=== PATIENT | female | born 1965 | race African-American/Black ===

== ENCOUNTER → 2016-09-09 | Outpatient (REF) | payer OTHER ==
[2016-09-09 14:16] LABS: MEAN CORPUSCULAR HEMOGLOBIN 29.8 pg (27.0-33.0); MEAN CORPUSCULAR HGB CONC 33.3 g/dl (32.0-36.5); MEAN CORPUSCULAR VOLUME 89.6 fl (80.0-96.0); RED CELL DISTRIBUTION WIDTH 11.9 % (11.5-14.5); WHITE BLOOD COUNT 3.9 K/mm3 (4.0-10.0)
[2016-09-09 15:08] LABS: ALBUMIN 4.1 GM/DL (3.2-5.2); ALBUMIN/GLOBULIN RATIO 1.14 (1.00-1.93); ALKALINE PHOSPHATASE 72 U/L (45-117); ALT/SGPT 21 U/L (12-78); ANION GAP 7 MEQ/L (8-16); AST/SGOT 19 U/L (15-37); BILIRUBIN,TOTAL 0.4 MG/DL (0.2-1.0); BLOOD UREA NITROGEN 15 MG/DL (7-18); CARBON DIOXIDE LEVEL 32 MEQ/L (21-32); CHLORIDE LEVEL 103 MEQ/L (98-107); CHOLESTEROL LEVEL 252 MG/DL (<200); CREATININE FOR GFR 0.94 MG/DL (0.55-1.02); GLOMERULAR FILTRATION RATE > 60.0 (>51); GLUCOSE, FASTING 77 MG/DL (70-105); POTASSIUM SERUM 4.5 MEQ/L (3.5-5.1); SODIUM LEVEL 142 MEQ/L (136-145); TOTAL PROTEIN 7.7 GM/DL (6.4-8.2); TRIGLYCERIDES LEVEL 53 MG/DL (<150)
== END ==
LOC: M SFHCPLAZ 10:04
PROVIDERS: ATTEND Family Medicine
DX: Z13.21 Encounter for screening for nutritional disorder (principal); Z13.1 Encounter for screening for diabetes mellitus; Z13.220 Encounter for screening for lipoid disorders; Z68.39 Body mass index [BMI] 39.0-39.9, adult

== ENCOUNTER → 2016-11-30 | Outpatient (CLI) | payer OTHER ==
--- NOTE | 2016-11-30 14:46 | REPMRS ---
Patient History The patient states she has not had a clinical breast exam in over a year. Family history of breast cancer in maternal cousin under age 50. Digital Woman Screen Mammo: November 30, 2016 - Exam #: [id number] Bilateral CC and MLO view(s) were taken. Technologist: Michelle Chavira, Technologist Prior study comparison: November 14, 2013, digital woman screen mammo performed at [facility]. November 06, 2012, digital woman screen mammo performed at [facility] to [facility]. FINDINGS: The breast tissue is heterogeneously dense. This may lower the sensitivity of mammography. There has been no change in the appearance of the mammogram from the prior studies. There is a moderate amount of residual fibroglandular tissue which is fairly symmetric. There is no interval development of dominant mass, areas of architectural distortion, or clustered microcalcification typical of malignancy. ASSESSMENT: BI-RADS/ACR category 1 mammogram. Negative. Recommendation Routine screening mammogram in 1 year (for women over age 40). This mammogram was interpreted with the aid of an FDA-approved computer-aided dectection system. Electronically Signed By: Prabhu Lange MD 11/30/16 1054
== END ==
LOC: M WHC 12:48
PROVIDERS: ATTEND Family Medicine
DX: Z12.31 Encounter for screening mammogram for malignant neoplasm of breast (principal)

== ENCOUNTER → 2016-12-29 | Outpatient (CLI) | payer MEDICAID, OTHER ==
[~2016-12-29] VITALS: Ht 167.6 cm; Wt 115.2 kg
[~2016-12-29] MED LIST: LIDOCAINE 2% INJ 100 MG/5 ML SDV (FOR ANES.) As Ordered ONE; NS 1,000 ML IV ONE; PHEN15CA PO; PROPOFOL 200 MG/20 ML VIAL As Ordered ONE; TOPI50TA9 PO
--- NOTE | 2016-12-29 10:26 | ROOR ---
Patient Name: Kerri Peoples Procedure Date: 12/29/2016 9:57 AM Date of : 1965 Age: 51 Room: [facility] Gender: Female Note Status: Finalized Procedure: Colonoscopy Indications: Screening for colorectal malignant neoplasm Providers: Merrick Patel Jr, MD Referring MD: Estefania Dotson DO Requesting Provider: Medicines: Propofol per Anesthesia Complications: No immediate complications. Procedure: Pre-Anesthesia Assessment: - Prior to the procedure, a History and Physical was performed, and patient medications and allergies were reviewed. The patient is competent. The risks and benefits of the procedure and the sedation options and risks were discussed with the patient. All questions were answered and informed consent was obtained. Patient identification and proposed procedure were verified by the physician and the nurse in the pre-procedure area and in the procedure room. Mental Status Examination: alert and oriented. Airway Examination: normal oropharyngeal airway and neck mobility. Respiratory Examination: clear to auscultation. CV Examination: normal. ASA Grade Assessment: II - A patient with mild systemic disease. After reviewing the risks and benefits, the patient was deemed in satisfactory condition to undergo the procedure. The anesthesia plan was to use moderate sedation / analgesia (conscious sedation). Immediately prior to administration of medications, the patient was re-assessed for adequacy to receive sedatives. The heart rate, respiratory rate, oxygen saturations, blood pressure, adequacy of pulmonary ventilation, and response to care were monitored throughout the procedure. The physical status of the patient was re-assessed after the procedure. The Colonoscope was introduced through the anus and advanced to the cecum, identified by appendiceal orifice and ileocecal valve. The colonoscopy was performed without difficulty. The patient tolerated the procedure well. The quality of the bowel preparation was adequate and excellent. Findings: The perianal and digital rectal examinations were normal. Pertinent negatives include normal sphincter tone, no palpable rectal lesions and no anal lesion or abnormality was detected. The rectum, recto-sigmoid colon, sigmoid colon, descending colon, transverse colon, ascending colon, cecum, appendiceal orifice and ileocecal valve appeared normal. Impression: - The rectum, recto-sigmoid colon, sigmoid colon, descending colon, transverse colon, ascending colon, cecum, appendiceal orifice and ileocecal valve are normal. - No specimens collected. Recommendation: - Discharge patient to home (ambulatory). - Repeat colonoscopy in 10 years for screening purposes. Merrick Patel MD Merrick Patel Jr, MD 12/29/2016 10:25:50 AM This report has been signed electronically. Number of Addenda: 0 Note Initiated On: 12/29/2016 9:57 AM Estimated Blood Loss: Estimated blood loss: none.
[2016-12-29 10:45] VITALS: BP 110/75
== END ==
LOC: M OPP 08:54
PROVIDERS: ATTEND Surgery
DX: Z12.11 Encounter for screening for malignant neoplasm of colon (principal); E66.9 Obesity, unspecified; Z79.899 Other long term (current) drug therapy; Z88.5 Allergy status to narcotic agent

== ENCOUNTER → 2017-04-08 | Outpatient (REF) | payer OTHER ==
[~2017-04-08] MED LIST changes: -LIDOCAINE 2% INJ 100 MG/5 ML SDV (FOR ANES.) As Ordered ONE; -NS 1,000 ML IV ONE; -PROPOFOL 200 MG/20 ML VIAL As Ordered ONE
== END ==
LOC: M LAB REF 15:30
PROVIDERS: ATTEND Physician Assistant Surgical
DX: N39.0 Urinary tract infection, site not specified (principal)

== ENCOUNTER → 2017-05-31 | Outpatient (REF) | payer OTHER | LOC: M SFHCWAGY 17:09 | PROVIDERS: ATTEND Nurse Practitioner Women's Health | DX: Z11.3 Encounter for screening for infections with a predominantly sexual mode of transmission (principal) ==

== ENCOUNTER → 2017-08-09 | Outpatient (REF) | payer OTHER ==
[2017-08-09 15:46] LABS: TOTAL 25(OH) VITAMIN D 21.7 NG/ML (30.0-100.0)
== END ==
LOC: M SFHCWAGY 11:56
DX: R53.83 Other fatigue (principal); E55.9 Vitamin D deficiency, unspecified
CPT/HCPCS: 82306

== ENCOUNTER → 2018-04-05 | Outpatient (REF) | payer OTHER ==
[2018-04-05 19:25] LABS: CHLAMYDIA DNA AMPLIFICATION NEGATIVE (NEGATIVE); GC DNA AMPLIFICATION NEGATIVE (NEGATIVE)
== END ==
LOC: M SFHCWAGY 16:25
DX: Z11.3 Encounter for screening for infections with a predominantly sexual mode of transmission (principal)

== ENCOUNTER → 2018-04-09 | Outpatient (CLI) | payer OTHER | LOC: M WHC 13:21 | DX: Z12.31 Encounter for screening mammogram for malignant neoplasm of breast (principal); N60.31 Fibrosclerosis of right breast; N60.32 Fibrosclerosis of left breast | CPT/HCPCS: 77067 ==

== ENCOUNTER → 2018-04-30 | Outpatient (CLI) | payer OTHER | LOC: M WUC 15:23 | DX: S39.012A Strain of muscle, fascia and tendon of lower back, initial encounter (principal); W18.30XA Fall on same level, unspecified, initial encounter; Y92.009 Unspecified place in unspecified non-institutional (private) residence as the place of occurrence of the external cause | CPT/HCPCS: 72110 ==

== ENCOUNTER → 2019-01-25 | Outpatient (REF) | payer OTHER ==
[2019-01-25 18:11] LABS: CHLAMYDIA DNA AMPLIFICATION NEGATIVE (NEGATIVE); GC DNA AMPLIFICATION NEGATIVE (NEGATIVE)
== END ==
LOC: M SFHCPLAZ 11:38
PROVIDERS: ATTEND Obstetrics & Gynecology
DX: N89.8 Other specified noninflammatory disorders of vagina (principal)

== ENCOUNTER → 2019-01-25 | Outpatient (REF) | payer OTHER ==
[2019-01-25 14:00] LABS: BASO % 0.6 % (0.0-1.0); HEMATOCRIT 39.7 % (36.0-47.0); HEMOGLOBIN 12.8 g/dl (12.0-15.5); LYMPH # 1.5 10^3/uL (1.5-4.5); LYMPH % 48.6 % (24.0-44.0); MEAN CORPUSCULAR HEMOGLOBIN 29.6 pg (27.0-33.0); MEAN CORPUSCULAR HGB CONC 32.2 g/dl (32.0-36.5); MEAN CORPUSCULAR VOLUME 91.9 fl (80.0-96.0); MONO # 0.3 10^3/uL (0.0-0.8); MONO % 8.9 % (0.0-5.0); NEUTROPHILS # 1.3 10^3/uL (1.8-7.7); NEUTROPHILS % 40.9 % (36.0-66.0); PLATELET COUNT, AUTOMATED 200 10^3/uL (150-450); RED BLOOD COUNT 4.32 10^6/uL (4.00-5.40); WHITE BLOOD COUNT 3.2 10^3/uL (4.0-10.0)
[2019-01-25 14:07] LABS: C REACTIVE PROTEIN QUANTITATIV < 0.30 MG/DL (0.00-0.30); GLOMERULAR FILTRATION RATE > 60.0 (>51); RHEUMATOID FACTOR QUANT < 10.0 IU/ML (<15.0)
[2019-01-25 14:22] LABS: ERYTHROCYTE SEDIMENTATION RATE 8 mm/hr (0-30)
[2019-01-31 00:06] LABS: ANTINUCLEAR ANTIBODIES DIRECT Negative (Negative); HLA-B27 Negative (.); Lyme Disease IgG/IgM Antibodie <0.91 ISR (0.00-0.90); Lyme Disease IgM Ab Quantitati <0.80 index (0.00-0.79)
== END ==
LOC: M LABDRAW1 10:23
PROVIDERS: ATTEND Physician Assistant
DX: M17.11 Unilateral primary osteoarthritis, right knee (principal)

== ENCOUNTER → 2019-01-25 | Outpatient (REF) | payer OTHER ==
[2019-01-25 14:08] LABS: BLOOD UREA NITROGEN 15 MG/DL (7-18); CALCIUM LEVEL 9.1 MG/DL (8.5-10.1); CARBON DIOXIDE LEVEL 31 MEQ/L (21-32); CHLORIDE LEVEL 106 MEQ/L (98-107); CHOLESTEROL LEVEL 223 MG/DL (<200); CHOLESTEROL RISK RATIO 2.207 (<5); CREATININE FOR GFR 0.82 MG/DL (0.55-1.30); GLOMERULAR FILTRATION RATE > 60.0 (>51); GLUCOSE, FASTING 80 MG/DL (70-100); HDL CHOLESTEROL 101 MG/DL (>40); LDL CHOLESTEROL 113 MG/DL (<100); NON-HDL-C 122 MG/DL; SODIUM LEVEL 141 MEQ/L (136-145); TRIGLYCERIDES LEVEL 47 MG/DL (<150)
[2019-01-25 14:25] LABS: HEMOGLOBIN A1c 5.9 %
== END ==
LOC: M LABDRAW1 10:20
PROVIDERS: ATTEND Obstetrics & Gynecology
DX: Z13.1 Encounter for screening for diabetes mellitus (principal); E78.5 Hyperlipidemia, unspecified

== ENCOUNTER → 2019-08-07 | Outpatient (CLI) | payer MEDICAID, OTHER, SELFPAY ==
--- NOTE | 2019-08-07 15:29 | REPMRS ---
Patient History The patient states she had a clinical breast exam in 2019. Family history of breast cancer under age 50 in maternal cousin. Digital Woman Screen Mammo: August 07, 2019 - Exam #: [id number] Bilateral CC and MLO view(s) were taken. Technologist: Pam Valera, Technologist Prior study comparison: April 09, 2018, bilateral digital woman screen mammo performed at [facility]. November 30, 2016, digital woman screen mammo performed at [facility]. November 14, 2013, digital woman screen mammo performed at [facility]. FINDINGS: The breast tissue is heterogeneously dense. This may lower the sensitivity of mammography. There has been some involutional change in the interval since the prior study. There is a somewhat asymmetric density in the medial aspect of the right breast on the craniocaudad view. This is not seen on the MLO view. This is felt to merit further evaluation . There is a moderate amount of heterogeneously dense fibroglandular tissue which is fairly symmetric. There is no other interval development of dominant mass, architectural distortion, or grouped microcalcification typical of malignancy. There has been no other change in the appearance of the mammogram from the prior studies. 3-D tomosynthesis shows no additional findings. Assessment: BI-RADS/ACR category 0 mammogram, Incomplete: Need additional imaging evaluation and/or prior mammograms for comparison. Recommendation Ultrasound and special view mammogram of the right breast. This patient's Lifetime Breast Cancer RIsk is estimated at 7.1 %. This mammogram was interpreted with the aid of an FDA-approved computer-aided dectection system. Electronically Signed By: Colin Chopra MD 08/07/19 0223
== END ==
LOC: M WHC 13:58
PROVIDERS: ATTEND Nurse Practitioner Women's Health
DX: Z12.31 Encounter for screening mammogram for malignant neoplasm of breast (principal)

== ENCOUNTER → 2019-08-16 | Outpatient (CLI) | payer MEDICAID, SELFPAY ==
--- NOTE | 2019-08-19 08:14 | REP ---
Digital diagnostic unilateral right breast mammography with CAD and focused right breast sonography: History: Screening mammography August 07, 2019 was BIRADS category 0 because of a possible asymmetric density medially in the right breast seen only on the craniocaudal view. Comparison mammography from April 09, 2018 and November 30, 2016 is also reviewed. Mammographic findings: Magnified focal spot compression CC, true mediolateral and MLO views are obtained. The area in question compresses away to stromal elements which are felt to be unchanged radiographically from comparison mammography 2017 and 2016. No suspicious mammogram finding. Sonographic findings: Focused right breast sonography is performed in the right breast medially. 2 o'clock to 4 o'clock and retroareolar region. Normal stromal elements are seen. Mildly heterogeneous fibroglandular background echotexture is seen. No cyst, mass, or acoustic shadowing is appreciated. Impression: BIRADS category 1 negative findings. Repeat screening mammography recommended in 1 year. This mammogram was interpreted with the aid of an FDA-approved computer-aided detection system. The patient letter being requested is M1 dense.
== END ==
LOC: M WHC 13:47
PROVIDERS: ATTEND Nurse Practitioner Women's Health
DX: R92.2 Inconclusive mammogram (principal)

== ENCOUNTER → 2019-09-05 | Outpatient (REF) | payer MEDICAID ==
[2019-09-05 17:38] LABS: BASO % 0.4 % (0.0-1.0); EOS # 0.1 10^3/uL (0.0-0.5); EOS % 1.5 % (0.0-3.0); HEMATOCRIT 40.6 % (36.0-47.0); LYMPH # 2.1 10^3/uL (1.5-5.0); LYMPH % 44.3 % (24.0-44.0); MEAN CORPUSCULAR HEMOGLOBIN 29.1 pg (27.0-33.0); MONO # 0.3 10^3/uL (0.0-0.8); MONO % 6.6 % (0.0-5.0); NEUTROPHILS # 2.2 10^3/uL (1.5-8.5); NEUTROPHILS % 46.8 % (36.0-66.0); PLATELET COUNT, AUTOMATED 219 10^3/uL (150-450); RED BLOOD COUNT 4.46 10^6/uL (4.00-5.40); WHITE BLOOD COUNT 4.7 10^3/uL (4.0-10.0)
[2019-09-05 17:51] LABS: C REACTIVE PROTEIN QUANTITATIV < 0.30 MG/DL (0.00-0.30); RHEUMATOID FACTOR QUANT < 10.0 IU/ML (<15.0); URIC ACID 3.4 MG/DL (2.6-6.0)
[2019-09-05 18:09] LABS: ERYTHROCYTE SEDIMENTATION RATE 14 mm/hr (0-30)
== END ==
LOC: M LABDRAWP 17:03
PROVIDERS: ATTEND Physician Assistant
DX: M17.0 Bilateral primary osteoarthritis of knee (principal)

== ENCOUNTER 2019-09-13 17:01 | Emergency (ER) | payer MEDICAID, OTHER ==
[~2019-09-13] VITALS: Ht 167.6 cm; Wt 117.9 kg
[2019-09-13 19:05] VITALS: BP 164/84
--- NOTE | 2019-09-13 19:15 | REP ---
HISTORY: Pain and swelling. COMPARISON: None. Preliminary report was given by [employer] at the time the examination was performed. TECHNIQUE: Multiple ultrasonographic images of the deep venous structures of the right thigh were obtained from the common femoral vein to the popliteal vein along with Doppler interrogation and color flow Doppler images. FINDINGS: There is no abnormal echogenic material seen within any of the visualized deep venous structures that would suggest acute thrombosis. Coaptation is unremarkable throughout. Doppler interrogation shows an expected response to respiratory variability and augmentation. The color flow images show what appears to be a normal vascular pattern throughout. IMPRESSION: There is no ultrasonographic evidence of deep venous thrombosis involving any of the visualized deep venous structures of the right thigh, as described above. Electronically Signed by Jevon Recio DO 09/13/2019 07:32 P
== END 2019-09-13 20:11 | disposition home or self-care (01) ==
LOC: M ED 17:01
DX: R22.41 Localized swelling, mass and lump, right lower limb (principal); Z88.5 Allergy status to narcotic agent; Z88.8 Allergy status to other drugs, medicaments and biological substances

== ENCOUNTER → 2019-09-16 | Outpatient (REF) | payer OTHER ==
[2019-09-16 18:14] LABS: APPEARANCE, URINE TURBID (CLEAR); BACTERIA, URINE AUTO 2+ (NEGATIVE); BILIRUBIN, URINE AUTO NEGATIVE (NEGATIVE); BLOOD, URINE BLOOD 1+ (NEGATIVE); COLOR, URINE YELLOW (YELLOW); GLUCOSE, URINE (UA) AUTO NEGATIVE (NEGATIVE); KETONE, URINE AUTO TRACE mg/dL (NEGATIVE); LEUKOCYTE ESTERASE, URINE AUTO 2+ (NEGATIVE); NITRITE, URINE AUTO NEGATIVE (NEGATIVE); PROTEIN, URINE AUTO NEGATIVE (NEGATIVE); RBC, URINE AUTO 2 /HPF (0-3); SPECIFIC GRAVITY URINE AUTO 1.032 (1.002-1.035); SQUAMOUS EPITHELIAL CELL UR AU 0 /HPF (0-6); UROBILINOGEN, URINE AUTO 0.2 mg/dL (0.0-2.0); WBC, URINE AUTO 4 /HPF (0-3)
== END ==
LOC: M SFHCPLAZ 17:09
PROVIDERS: ATTEND Obstetrics & Gynecology
DX: R30.0 Dysuria (principal)

== ENCOUNTER → 2019-09-21 | Outpatient (CLI) | payer OTHER ==
[2019-09-21 17:43] LABS: BLOOD UREA NITROGEN 16 MG/DL (7-18); CALCIUM LEVEL 8.8 MG/DL (8.5-10.1); CARBON DIOXIDE LEVEL 30 MEQ/L (21-32); CHLORIDE LEVEL 104 MEQ/L (98-107); CHOLESTEROL LEVEL 217 MG/DL (<200); CHOLESTEROL RISK RATIO 2.358 (<5); CREATININE FOR GFR 0.84 MG/DL (0.55-1.30); GLOMERULAR FILTRATION RATE > 60.0 (>51); GLUCOSE, FASTING 79 MG/DL (70-100); HDL CHOLESTEROL 92 MG/DL (>40); LDL CHOLESTEROL 114 MG/DL (<100); NON-HDL-C 125 MG/DL; POTASSIUM SERUM 4.2 MEQ/L (3.5-5.1); SODIUM LEVEL 140 MEQ/L (136-145); TRIGLYCERIDES LEVEL 53 MG/DL (<150)
== END ==
LOC: M WUC 13:40
PROVIDERS: ATTEND Obstetrics & Gynecology
DX: Z13.220 Encounter for screening for lipoid disorders (principal); Z13.1 Encounter for screening for diabetes mellitus

== ENCOUNTER → 2019-10-20 | Outpatient (REF) | payer OTHER | LOC: M LAB REF 18:15 | PROVIDERS: ATTEND Physician Assistant | DX: R30.0 Dysuria (principal) ==

== ENCOUNTER → 2019-12-09 | Outpatient (REF) | payer OTHER | LOC: M LAB REF 15:56 | PROVIDERS: ATTEND Physician Assistant | DX: N39.0 Urinary tract infection, site not specified (principal) ==

== ENCOUNTER → 2020-07-24 | Outpatient (REF) | payer OTHER ==
[2020-07-24 14:03] LABS: APPEARANCE, URINE CLEAR (CLEAR); BACTERIA, URINE AUTO NEGATIVE (NEGATIVE); BILIRUBIN, URINE AUTO NEGATIVE (NEGATIVE); BLOOD, URINE BLOOD 1+ (NEGATIVE); COLOR, URINE YELLOW (YELLOW); GLUCOSE, URINE (UA) AUTO NEGATIVE (NEGATIVE); KETONE, URINE AUTO NEGATIVE (NEGATIVE); LEUKOCYTE ESTERASE, URINE AUTO NEGATIVE (NEGATIVE); MUCUS, URINE SMALL (NEGATIVE); NITRITE, URINE AUTO NEGATIVE (NEGATIVE); PROTEIN, URINE AUTO NEGATIVE (NEGATIVE); RBC, URINE AUTO 2 /HPF (0-3); SPECIFIC GRAVITY URINE AUTO 1.021 (1.002-1.035); SQUAMOUS EPITHELIAL CELL UR AU 2 /HPF (0-6); UROBILINOGEN, URINE AUTO 0.2 mg/dL (0.0-2.0); WBC, URINE AUTO 1 /HPF (0-3)
== END ==
LOC: M SFHCPLAZ 12:49
PROVIDERS: ATTEND Student in an Organized Health Care Education/Training Program
DX: I10 Essential (primary) hypertension (principal)

== ENCOUNTER → 2020-08-13 | Outpatient (CLI) | payer OTHER ==
--- NOTE | 2020-08-13 14:34 | REPMRS ---
Patient History The patient states she has not had a clinical breast exam in over a year. Family history of breast cancer under age 50 in maternal cousin. No Hormone Replacement Therapy Digital Woman Screen Mammo: August 13, 2020 - Exam #: [id number] Bilateral CC and MLO view(s) were taken. Technologist: Michelle Chavira, Technologist Prior study comparison: August 07, 2019, bilateral digital woman screen mammo performed at [facility]. April 09, 2018, bilateral digital woman screen mammo performed at [facility]. November 30, 2016, digital woman screen mammo performed at [facility]. FINDINGS: There are scattered fibroglandular densities. The Volpara volumetric breast density category is: B. There is a moderate amount of residual fibroglandular tissue which is fairly symmetric. There is no interval development of dominant mass, architectural distortion, or grouped microcalcification typical of malignancy. There has been no change in the appearance of the mammogram from the prior studies. 3-D tomosynthesis shows no additional findings. Assessment: BI-RADS/ACR category 1 mammogram. Negative Mammogram. Recommendation Routine screening mammogram of both breasts in 1 year (for women over age 40). This patient's [facility] Lifetime Breast Cancer RIsk is estimated at 7.0 %. This mammogram was interpreted with the aid of an FDA-approved computer-aided dectection system. Electronically Signed By: Colin Chopra MD 08/13/20 3583
== END ==
LOC: M WHC 12:54
PROVIDERS: ATTEND Nurse Practitioner Women's Health
DX: Z12.31 Encounter for screening mammogram for malignant neoplasm of breast (principal)

== ENCOUNTER → 2020-09-24 | Outpatient (CLI) | payer OTHER ==
[2020-09-24 16:36] LABS: THYROID STIMULATING HORMONE 0.86 uIU/ML (0.358-3.740)
[2020-09-24 16:45] LABS: PROLACTIN 8.2 NG/ML
== END ==
LOC: M WUC 13:29
PROVIDERS: ATTEND Student in an Organized Health Care Education/Training Program
DX: L68.0 Hirsutism (principal)

== ENCOUNTER → 2020-10-05 | Outpatient (CLI) | payer OTHER | LOC: M WUC 13:22 | PROVIDERS: ATTEND Student in an Organized Health Care Education/Training Program | DX: L68.0 Hirsutism (principal) ==

== ENCOUNTER → 2020-11-04 | Outpatient (REF) | payer OTHER | LOC: M LAB REF 15:58 | PROVIDERS: ATTEND Physician Assistant | DX: R30.0 Dysuria (principal) ==

== ENCOUNTER → 2020-12-08 | Outpatient (CLI) | payer OTHER ==
[2020-12-08 20:58] LABS: BLOOD UREA NITROGEN 14 MG/DL (7-18); CARBON DIOXIDE LEVEL 28 MEQ/L (21-32); CHLORIDE LEVEL 109 MEQ/L (98-107); CREATININE FOR GFR 0.88 MG/DL (0.55-1.30); GLOMERULAR FILTRATION RATE > 60.0 (>51); GLUCOSE, FASTING 88 MG/DL (70-100); POTASSIUM SERUM 3.8 MEQ/L (3.5-5.1); SODIUM LEVEL 142 MEQ/L (136-145)
== END ==
LOC: M WUC 14:02
PROVIDERS: ATTEND Student in an Organized Health Care Education/Training Program
DX: Z68.41 Body mass index [BMI] 40.0-44.9, adult (principal)

== ENCOUNTER → 2021-06-02 | Outpatient (CLI) | payer OTHER ==
[~2021-06-02] MED LIST changes: -PHEN15CA PO; +PHEN15CA6 PO
[2021-06-02 16:12] LABS: BASO % 0.7 % (0.0-1.0); EOS # 0.1 10^3/uL (0.0-0.5); EOS % 1.2 % (0.0-3.0); HEMATOCRIT 42.8 % (36.0-47.0); HEMOGLOBIN 13.3 g/dl (12.0-15.5); LYMPH # 1.7 10^3/uL (1.5-5.0); LYMPH % 40.3 % (24.0-44.0); MEAN CORPUSCULAR HEMOGLOBIN 28.5 pg (27.0-33.0); MEAN CORPUSCULAR HGB CONC 31.1 g/dl (32.0-36.5); MEAN CORPUSCULAR VOLUME 91.8 fl (80.0-96.0); MONO # 0.3 10^3/uL (0.0-0.8); NEUTROPHILS # 2.1 10^3/uL (1.5-8.5); NEUTROPHILS % 49.8 % (36.0-66.0); PLATELET COUNT, AUTOMATED 222 10^3/uL (150-450); RED BLOOD COUNT 4.66 10^6/uL (4.00-5.40); WHITE BLOOD COUNT 4.1 10^3/uL (4.0-10.0)
[2021-06-02 16:41] LABS: BLOOD UREA NITROGEN 14 MG/DL (7-18); CALCIUM LEVEL 9.2 MG/DL (8.5-10.1); CARBON DIOXIDE LEVEL 32 MEQ/L (21-32); CHLORIDE LEVEL 106 MEQ/L (98-107); CHOLESTEROL LEVEL 274 MG/DL (<200); CHOLESTEROL RISK RATIO 2.824 (<5); CREATININE FOR GFR 0.87 MG/DL (0.55-1.30); GLOMERULAR FILTRATION RATE > 60.0 (>51); GLUCOSE, FASTING 89 MG/DL (70-100); HDL CHOLESTEROL 97 MG/DL (>40); LDL CHOLESTEROL 166 MG/DL (<100); NON-HDL-C 177 MG/DL; POTASSIUM SERUM 4.1 MEQ/L (3.5-5.1); SODIUM LEVEL 144 MEQ/L (136-145); TRIGLYCERIDES LEVEL 57 MG/DL (<150)
[2021-06-02 16:43] LABS: HEMOGLOBIN A1c 5.7 %
== END ==
LOC: M WUC 11:20
PROVIDERS: ATTEND Student in an Organized Health Care Education/Training Program
DX: R73.03 Prediabetes (principal)

== ENCOUNTER → 2021-06-02 | Outpatient (REF) | payer OTHER ==
[~2021-06-02] MED LIST changes: +PHEN15CA PO; -PHEN15CA6 PO
== END ==
LOC: M SFHCPLAZ 10:16
PROVIDERS: ATTEND Family Medicine
DX: R73.03 Prediabetes (principal); Z53.9 Procedure and treatment not carried out, unspecified reason

== ENCOUNTER → 2021-08-24 | Outpatient (CLI) | payer OTHER ==
[~2021-08-24] MED LIST changes: -PHEN15CA PO; +PHEN15CA6 PO
[2021-08-24 19:06] LABS: HEPATITIS B SURFACE ANTIBODY POSITIVE (POSITIVE)
[2021-08-26 04:07] LABS: RUBEOLA IgG ANTIBODY 83.2 AU/mL (Immune >16.4)
== END ==
LOC: M PLALAB 15:34
PROVIDERS: ATTEND Student in an Organized Health Care Education/Training Program
DX: Z02.79 Encounter for issue of other medical certificate (principal)

== ENCOUNTER → 2021-09-27 | Outpatient (REF) | payer OTHER | LOC: M SFHCPLAZ 15:53 | PROVIDERS: ATTEND Family Medicine | DX: I10 Essential (primary) hypertension (principal); R53.82 Chronic fatigue, unspecified; R73.03 Prediabetes; Z53.9 Procedure and treatment not carried out, unspecified reason ==

== ENCOUNTER → 2021-10-14 | Outpatient (CLI) | payer OTHER ==
[2021-10-14 17:19] LABS: ALBUMIN 3.9 GM/DL (3.2-5.2); ALT/SGPT 23 U/L (12-78); BILIRUBIN,TOTAL 0.3 MG/DL (0.2-1.0); BLOOD UREA NITROGEN 19 MG/DL (7-18); CALCIUM LEVEL 9.2 MG/DL (8.5-10.1); CARBON DIOXIDE LEVEL 34 MEQ/L (21-32); CHLORIDE LEVEL 101 MEQ/L (98-107); CHOLESTEROL LEVEL 206 MG/DL (<200); CHOLESTEROL RISK RATIO 2.607 (<5); CREATININE FOR GFR 1.01 MG/DL (0.55-1.30); GLOMERULAR FILTRATION RATE > 60.0 (>51); GLUCOSE, FASTING 68 MG/DL (70-100); HDL CHOLESTEROL 79 MG/DL (>40); LDL CHOLESTEROL 112 MG/DL (<100); NON-HDL-C 127 MG/DL; SODIUM LEVEL 138 MEQ/L (136-145); TOTAL PROTEIN 7.2 GM/DL (6.4-8.2); TRIGLYCERIDES LEVEL 75 MG/DL (<150)
[2021-10-14 17:27] LABS: TOTAL 25(OH) VITAMIN D 9.8 NG/ML (30.0-100.0)
[2021-10-14 17:34] LABS: HEMOGLOBIN A1c 5.7 %
== END ==
LOC: M PLALAB 15:52
PROVIDERS: ATTEND Internal Medicine
DX: I10 Essential (primary) hypertension (principal)

== ENCOUNTER → 2021-12-16 | Outpatient (CLI) | payer OTHER | LOC: M WHC 15:32 | PROVIDERS: ATTEND Obstetrics & Gynecology | DX: Z12.31 Encounter for screening mammogram for malignant neoplasm of breast (principal) ==

== ENCOUNTER → 2021-12-27 | Outpatient (REF) | payer OTHER | LOC: M WUC 19:43 | PROVIDERS: ATTEND Physician Assistant | DX: N39.0 Urinary tract infection, site not specified (principal) ==

== ENCOUNTER → 2022-02-21 | Outpatient (REF) | payer OTHER | LOC: M PLALAB 08:44 | PROVIDERS: ATTEND Nurse Practitioner Family | DX: Z12.4 Encounter for screening for malignant neoplasm of cervix (principal); N76.0 Acute vaginitis ==

== ENCOUNTER → 2022-04-10 | Outpatient (REF) | payer OTHER | LOC: M WUC 18:51 | PROVIDERS: ATTEND Physician Assistant | DX: N39.0 Urinary tract infection, site not specified (principal) ==

== ENCOUNTER → 2022-05-18 | Outpatient (CLI) | payer OTHER ==
[2022-05-18 17:55] LABS: BASO % 0.5 % (0.0-1.0); EOS % 0.5 % (0.0-3.0); HEMATOCRIT 40.3 % (36.0-47.0); HEMOGLOBIN 12.7 g/dl (12.0-15.5); LYMPH % 36.9 % (24.0-44.0); MEAN CORPUSCULAR HEMOGLOBIN 28.7 pg (27.0-33.0); MEAN CORPUSCULAR HGB CONC 31.5 g/dl (32.0-36.5); MONO # 0.5 10^3/uL (0.0-0.8); MONO % 9.9 % (2.0-8.0); NEUTROPHILS # 2.8 10^3/uL (1.5-8.5); PLATELET COUNT, AUTOMATED 252 10^3/uL (150-450); RED BLOOD COUNT 4.43 10^6/uL (4.00-5.40); WHITE BLOOD COUNT 5.5 10^3/uL (4.0-10.0)
[2022-05-18 18:23] LABS: HEMOGLOBIN A1c 5.7 % (4.0-6.0)
[2022-05-18 18:25] LABS: ALBUMIN 4.1 G/DL (3.2-5.2); ALT/SGPT 21 U/L (7.0-40); BILIRUBIN,TOTAL 0.3 MG/DL (0.3-1.2); BLOOD UREA NITROGEN 23 MG/DL (9-23); CALCIUM LEVEL 9.8 MG/DL (8.5-10.1); CARBON DIOXIDE LEVEL 31 MMOL/L (20-31); CHLORIDE LEVEL 100 MMOL/L (98-107); CHOLESTEROL LEVEL 219 MG/DL (<200); CREATININE FOR GFR 0.84 MG/DL (0.55-1.30); GLOMERULAR FILTRATION RATE > 60.0 (>51); GLUCOSE, FASTING 88 MG/DL (60-100); HDL CHOLESTEROL 87.6 MG/DL (>40); LDL CHOLESTEROL 118.4 MG/DL (<100); NON-HDL-C 131 MG/DL; POTASSIUM SERUM 3.4 MMOL/L (3.5-5.1); SODIUM LEVEL 141 MMOL/L (136-145); TRIGLYCERIDES LEVEL 65 MG/DL (<150)
== END ==
LOC: M LAB 17:06
PROVIDERS: ATTEND Student in an Organized Health Care Education/Training Program
DX: I10 Essential (primary) hypertension (principal)

== ENCOUNTER → 2022-05-23 | Outpatient (REF) | payer OTHER ==
[2022-05-23 20:15] LABS: CREATININE, URINE 239.7 MG/DL; MAU/CREAT RATIO 3.3 MCG/MG (0.0-30.0)
== END ==
LOC: M LAB REF 18:24
PROVIDERS: ATTEND Student in an Organized Health Care Education/Training Program
DX: I10 Essential (primary) hypertension (principal)

== ENCOUNTER → 2022-06-08 | Outpatient (REF) | payer OTHER | LOC: M WUC 09:23 | PROVIDERS: ATTEND Physician Assistant | DX: R30.0 Dysuria (principal) ==

== ENCOUNTER → 2022-08-12 | Outpatient (REF) | payer OTHER ==
[2022-08-12 17:58] LABS: APPEARANCE, URINE MANUAL CLOUDY (CLEAR); BILIRUBIN, URINE MANUAL NEGATIVE (NEGATIVE); BLOOD URINE MANUAL TRACE (NEGATIVE); COLOR, URINE MANUAL YELLOW (YELLOW); GLUCOSE, URINE (UA) MANUAL NEGATIVE (NEGATIVE); KETONE, URINE MANUAL NEGATIVE (NEGATIVE); LEUKOCYTE ESTERASE, URINE MAN POSITIVE (NEGATIVE); NITRITE, URINE MANUAL NEGATIVE (NEGATIVE); PH,URINE MAN 6.5 UNITS (5.0 - 7.0); PROTEIN, URINE MANUAL NEGATIVE (NEGATIVE); SPECIFIC GRAVITY,URINE MANUAL 1.015 (1.002-1.035); UROBILINOGEN, URINE MANUAL NORMAL (NORMAL)
[2022-08-12 18:10] LABS: BACTERIA, URINE LARGE AMOUNT; HYALINE CAST, URINE NONE SEEN /lpf (0-1); RBC, URINE 0-1 /hpf (0-3); SQUAMOUS EPITHELIAL CELL URINE SMALL AMOUNT /hpf (SMALL AMT); WBC, URINE 20-30 /hpf (0-3)
== END ==
LOC: M LAB REF 16:08
PROVIDERS: ATTEND Physician Assistant Medical
DX: N39.0 Urinary tract infection, site not specified (principal)

== ENCOUNTER → 2022-12-16 | Outpatient (REF) | payer OTHER ==
[~2022-12-16] MED LIST changes: +TOPI-254 PO; -TOPI50TA9 PO
== END ==
LOC: M SFHCPLAZ 08:58
PROVIDERS: ATTEND Family Medicine
DX: Z53.9 Procedure and treatment not carried out, unspecified reason (principal)

== ENCOUNTER → 2023-01-15 | Outpatient (REF) | payer OTHER | LOC: M WUC 16:36 | PROVIDERS: ATTEND Internal Medicine | DX: N39.0 Urinary tract infection, site not specified (principal) ==

== ENCOUNTER → 2023-02-23 | Outpatient (CLI) | payer OTHER | LOC: M WHC 13:31 | PROVIDERS: ATTEND Nurse Practitioner Family | DX: Z12.31 Encounter for screening mammogram for malignant neoplasm of breast (principal) ==

== ENCOUNTER → 2023-05-16 | Outpatient (CLI) | payer OTHER ==
[2023-05-16 16:39] LABS: BASO % 0.4 % (0.0-1.0); EOS # 0.1 10^3/uL (0.0-0.5); EOS % 1.9 % (0.0-3.0); HEMATOCRIT 40.4 % (36.0-47.0); HEMOGLOBIN 12.8 g/dl (12.0-15.5); LYMPH % 42.6 % (24.0-44.0); MEAN CORPUSCULAR HGB CONC 31.7 g/dl (32.0-36.5); MEAN CORPUSCULAR VOLUME 91.4 fl (80.0-96.0); MONO # 0.4 10^3/uL (0.0-0.8); MONO % 9.2 % (2.0-8.0); NEUTROPHILS # 2.2 10^3/uL (1.5-8.5); NEUTROPHILS % 45.7 % (36.0-66.0); PLATELET COUNT, AUTOMATED 222 10^3/uL (150-450); RED BLOOD COUNT 4.42 10^6/uL (4.00-5.40); WHITE BLOOD COUNT 4.8 10^3/uL (4.0-10.0)
[2023-05-16 16:55] LABS: HEMOGLOBIN A1c 5.5 % (4.0-6.0)
[2023-05-16 16:57] LABS: CREATININE, URINE 142.2 MG/DL
[2023-05-16 16:59] LABS: MAU/CREAT RATIO 4.2 MCG/MG (0.0-30.0)
[2023-05-16 17:03] LABS: ALBUMIN 3.9 G/DL (3.2-5.2); ALKALINE PHOSPHATASE 58 U/L (46-116); ALT/SGPT 16 U/L (7.0-40); AST/SGOT 16 U/L (<34); BILIRUBIN,TOTAL 0.5 MG/DL (0.3-1.2); BLOOD UREA NITROGEN 18 MG/DL (9-23); CALCIUM LEVEL 9.3 MG/DL (8.5-10.1); CARBON DIOXIDE LEVEL 31 MMOL/L (20-31); CHLORIDE LEVEL 103 MMOL/L (98-107); CHOLESTEROL LEVEL 247 MG/DL (<200); CHOLESTEROL RISK RATIO 2.57 (<5); GLOMERULAR FILTRATION RATE > 60.0 (>51); GLUCOSE, FASTING 86 MG/DL (60-100); HDL CHOLESTEROL 96.1 MG/DL (>40); LDL CHOLESTEROL 137.7 MG/DL (<100); NON-HDL-C 150.9 MG/DL; POTASSIUM SERUM 3.9 MMOL/L (3.5-5.1); SODIUM LEVEL 140 MMOL/L (136-145); TRIGLYCERIDES LEVEL 66 MG/DL (<150)
== END ==
LOC: M WUC 12:31
PROVIDERS: ATTEND Student in an Organized Health Care Education/Training Program
DX: I10 Essential (primary) hypertension (principal); E78.5 Hyperlipidemia, unspecified

== ENCOUNTER → 2023-06-02 | Outpatient (REF) | payer OTHER | LOC: M SFHCWAGY 15:34 | PROVIDERS: ATTEND Nurse Practitioner Family | DX: R39.15 Urgency of urination (principal) ==

== ENCOUNTER → 2023-07-05 | Outpatient (CLI) | payer OTHER ==
[~2023-07-05] MED LIST changes: +TOPI-21 PO; -TOPI-254 PO
[2023-07-05 14:26] LABS: CHOLESTEROL RISK RATIO 2.38 (<5); HDL CHOLESTEROL 89.6 MG/DL (>40); LDL CHOLESTEROL 115.2 MG/DL (<100); NON-HDL-C 124.4 MG/DL
== END ==
LOC: M PLALAB 11:45
PROVIDERS: ATTEND Student in an Organized Health Care Education/Training Program
DX: E78.5 Hyperlipidemia, unspecified (principal)

== ENCOUNTER 2023-09-22 16:04 | Emergency (ER) | payer OTHER ==
[~2023-09-22] VITALS: Ht 167.6 cm; Wt 119.0 kg
[2023-09-22] MEDS ORDERED: TELM1TAB35 (16:13)
[2023-09-22] MEDS ORDERED: CELE1CAP99 (16:13)
[2023-09-22] MEDS ORDERED: METF-838 (16:13)
[2023-09-22 17:24] LABS: BASO % 0.1 % (0.0-1.0); EOS % 0.1 % (0.0-3.0); HEMATOCRIT 42.6 % (36.0-47.0); HEMOGLOBIN 13.8 g/dl (12.0-15.5); LYMPH # 0.3 10^3/uL (1.5-5.0); LYMPH % 3.2 % (24.0-44.0); MEAN CORPUSCULAR HEMOGLOBIN 29.3 pg (27.0-33.0); MEAN CORPUSCULAR HGB CONC 32.4 g/dl (32.0-36.5); MEAN CORPUSCULAR VOLUME 90.4 fl (80.0-96.0); MONO # 0.4 10^3/uL (0.0-0.8); NEUTROPHILS # 8.1 10^3/uL (1.5-8.5); NEUTROPHILS % 91.4 % (36.0-66.0); PLATELET COUNT, AUTOMATED 212 10^3/uL (150-450); RED BLOOD COUNT 4.71 10^6/uL (4.00-5.40); WHITE BLOOD COUNT 8.8 10^3/uL (4.0-10.0)
[2023-09-22 17:39] LABS: ALBUMIN 3.1 G/DL (3.2-5.2); BILIRUBIN,DIRECT 0.2 MG/DL (<0.4); BILIRUBIN,TOTAL 0.5 MG/DL (0.3-1.2); TOTAL PROTEIN 5.5 G/DL (5.7-8.2)
[2023-09-22] MEDS ORDERED: ISOVUE-370 76% 100ML VIAL As Ordered ONE (18:05)
[2023-09-22] MEDS: ONDANSETRON 4MG 2ML VIAL IV ONE (18:20)
[2023-09-22] MEDS: NS 1,000 ML IV ONE (18:20)
[2023-09-22] MEDS: KETOROLAC 30 MG/ML 1ML VIAL IV ONE (18:21)
[2023-09-22] MEDS ORDERED: ONDA4TAB6 PO (20:49)
[2023-09-22 20:55] VITALS: BP 141/64; TEMP 99.5; O2SAT 99
== END 2023-09-22 21:01 | disposition home or self-care (01) ==
LOC: M ED 16:04
DX: R11.2 Nausea with vomiting, unspecified (principal); R19.7 Diarrhea, unspecified; E11.9 Type 2 diabetes mellitus without complications; I10 Essential (primary) hypertension; F10.10 Alcohol abuse, uncomplicated; Z88.8 Allergy status to other drugs, medicaments and biological substances; Z79.84 Long term (current) use of oral hypoglycemic drugs; Z79.899 Other long term (current) drug therapy
CPT/HCPCS: 74177; 80047; 80076; 81001; 83690; 85025; 96361; 96374; 96375; 99284; J1885; J2405; Q9967

== ENCOUNTER → 2024-02-28 | Outpatient (CLI) | payer OTHER ==
[~2024-02-28] MED LIST changes: +CELE1CAP99; +METF-838; +ONDA-282 PO; +TELM1TAB35
== END ==
LOC: M WHC 15:24
PROVIDERS: ATTEND Nurse Practitioner Family
DX: Z12.31 Encounter for screening mammogram for malignant neoplasm of breast (principal)

== ENCOUNTER → 2024-02-28 | Outpatient (REF) | payer OTHER | LOC: M SFHCWAGY 09:42 | PROVIDERS: ATTEND Nurse Practitioner Family | DX: Z12.4 Encounter for screening for malignant neoplasm of cervix (principal) ==

== ENCOUNTER → 2024-09-22 | Outpatient (REF) | payer OTHER | LOC: M LAB REF 18:44 | PROVIDERS: ATTEND Student in an Organized Health Care Education/Training Program | DX: R30.0 Dysuria (principal) ==

== ENCOUNTER → 2024-10-18 | Outpatient (REF) | payer OTHER | LOC: M LAB REF 18:50 | PROVIDERS: ATTEND Physician Assistant | DX: R30.0 Dysuria (principal) ==

== ENCOUNTER → 2024-10-31 | Outpatient (CLI) | payer OTHER ==
[2024-10-31 17:34] LABS: BASO % 0.6 % (0.0-1.0); EOS # 0.1 10^3/uL (0.0-0.5); EOS % 1.3 % (0.0-3.0); HEMOGLOBIN 12.3 g/dl (12.0-15.5); LYMPH % 41.7 % (24.0-44.0); MEAN CORPUSCULAR HEMOGLOBIN 28.1 pg (27.0-33.0); MEAN CORPUSCULAR HGB CONC 30.8 g/dl (32.0-36.5); MEAN CORPUSCULAR VOLUME 91.3 fl (80.0-96.0); MONO # 0.5 10^3/uL (0.0-0.8); NEUTROPHILS # 2.2 10^3/uL (1.5-8.5); NEUTROPHILS % 46.2 % (36.0-66.0); PLATELET COUNT, AUTOMATED 220 10^3/uL (150-450); RED BLOOD COUNT 4.38 10^6/uL (4.00-5.40); WHITE BLOOD COUNT 4.8 10^3/uL (4.0-10.0)
[2024-10-31 17:41] LABS: ERYTHROCYTE SEDIMENTATION RATE 27 mm/hr (0-30)
[2024-10-31 17:56] LABS: URIC ACID 4.6 MG/DL (3.1-7.8)
[2024-10-31 17:59] LABS: C REACTIVE PROTEIN QUANTITATIV < 0.50 MG/DL (<1.0); RHEUMATOID FACTOR QUANT 8.6 IU/ML (<14)
== END ==
LOC: M PLALAB 14:37
PROVIDERS: ATTEND Physician Assistant
DX: M17.0 Bilateral primary osteoarthritis of knee (principal)

== ENCOUNTER → 2025-05-16 | Outpatient (REF) | payer OTHER | LOC: M SFHCPLAZ 08:05 | PROVIDERS: ATTEND Family Medicine | DX: I10 Essential (primary) hypertension (principal); Z13.29 Encounter for screening for other suspected endocrine disorder; R73.01 Impaired fasting glucose; E78.00 Pure hypercholesterolemia, unspecified ==

== ENCOUNTER → 2025-05-16 | Outpatient (CLI) | payer OTHER ==
[2025-05-16 11:09] LABS: PLATELET COUNT, AUTOMATED 225 10^3/uL (150-450)
[2025-05-16 11:27] LABS: ESTIMATED AVERAGE GLUCOSE 120.0 MG/DL (60-110)
[2025-05-16 11:44] LABS: ALT/SGPT 23.0 U/L (7.0-40); AST/SGOT 23.0 U/L (<34); CALCIUM LEVEL 9.4 MG/DL (8.5-10.1); CARBON DIOXIDE LEVEL 30.0 MMOL/L (20-31); CHLORIDE LEVEL 104.0 MMOL/L (98-107); CHOLESTEROL LEVEL 248.0 MG/DL (<200); CHOLESTEROL RISK RATIO 2.76 (<5); CREATININE FOR GFR 0.9 MG/DL (0.55-1.30); GLOMERULAR FILTRATION RATE 73.6 (>51); LDL CHOLESTEROL 145.6 MG/DL (<100); NON-HDL-C 158.2 MG/DL; POTASSIUM SERUM 5.3 MMOL/L (3.5-5.1); SODIUM LEVEL 143.0 MMOL/L (136-145); TRIGLYCERIDES LEVEL 63.0 MG/DL (<150)
[2025-05-16 11:45] LABS: FREE T4 1.11 NG/DL (0.89-1.76)
== END ==
LOC: M PLALAB 08:36
PROVIDERS: ATTEND Family Medicine
DX: R73.01 Impaired fasting glucose (principal); Z13.29 Encounter for screening for other suspected endocrine disorder; E78.00 Pure hypercholesterolemia, unspecified

== ENCOUNTER → 2025-05-21 | Outpatient (CLI) | payer OTHER | LOC: M WHC 16:53 | PROVIDERS: ATTEND Family Medicine | DX: Z12.31 Encounter for screening mammogram for malignant neoplasm of breast (principal) ==

== ENCOUNTER → 2025-06-12 | Outpatient (REF) | payer OTHER ==
[2025-06-13 11:29] LABS: APPEARANCE, URINE CLOUDY (CLEAR); BACTERIA, URINE AUTO 2+ (NEGATIVE); BILIRUBIN, URINE AUTO NEGATIVE (NEGATIVE); BLOOD, URINE BLOOD 2+ (NEGATIVE); GLUCOSE, URINE (UA) AUTO NEGATIVE (NEGATIVE); KETONE, URINE AUTO TRACE mg/dL (NEGATIVE); LEUKOCYTE ESTERASE, URINE AUTO 3+ (NEGATIVE); MUCUS, URINE SMALL (NEGATIVE); NITRITE, URINE AUTO POSITIVE (NEGATIVE); PROTEIN, URINE AUTO 2+ mg/dL (NEGATIVE); RBC, URINE AUTO 3 /HPF (0-3); SPECIFIC GRAVITY URINE AUTO 1.010 (1.002-1.035); SQUAMOUS EPITHELIAL CELL UR AU 3 /HPF (0-6); UROBILINOGEN, URINE AUTO 0.2 mg/dL (0.0-2.0); WBC, URINE AUTO TNTC /HPF (0-3)
== END ==
LOC: M SFHCPLAZ 15:57
PROVIDERS: ATTEND Family Medicine
DX: R39.9 Unspecified symptoms and signs involving the genitourinary system (principal)